=== PATIENT | female | born 1960 | race Caucasian/White ===

== ENCOUNTER 2016-10-27 19:01 | Emergency (ER) | payer BC ==
[~2016-10-27] VITALS: Ht 165.1 cm; Wt 106.2 kg
[2016-10-27 19:05] VITALS: TEMP 37; Ht 165.1 cm; Wt 106.2 kg
[2016-10-27] MEDS ORDERED: SERT-234 PO (19:33)
[2016-10-27] MEDS ORDERED: MAGN400T6 PO (19:33)
[2016-10-27] MEDS ORDERED: TRAM-10 PO (19:33)
[2016-10-27] MEDS ORDERED: ATEN-173 PO (19:33)
[2016-10-27] MEDS ORDERED: CAND32TA2 PO (19:33)
[2016-10-27] MEDS ORDERED: PRLSR20 PO (19:33)
[2016-10-27] MEDS ORDERED: IBUP-1050 PO (19:33)
[2016-10-27] MEDS ORDERED: CHOL2000 PO (19:33)
[2016-10-27] MEDS ORDERED: ALPR-411 PO (19:33)
--- NOTE | 2016-10-27 19:43 | DIAGNOSTIC IMAGING REPORT ---
ULTRASOUND LEFT LOWER EXTREMITY VENOUS CLINICAL HISTORY: Left leg pain and swelling. COMPARISON STUDY: No priors. TECHNIQUE: Real-time, grayscale, and color Doppler sonography of the deep veins of the left lower extremity was performed from the inguinal crease to the calf. Compression and augmentation were utilized. FINDINGS: There is no sonographic evidence of deep venous thrombosis identified in the left lower extremity. The common femoral, superficial femoral, and popliteal veins are patent and normally compressible. The greater saphenous vein and the profunda femoris vein at the junction with the common femoral vein are clear. The visualized calf veins are patent. IMPRESSION: There is no sonographic evidence of deep venous thrombosis identified in the left lower extremity. Electronically signed by: Saqib Jean M.D. 10/27/2016 7:42 PM Dictated Date/Time: 10/27/2016 7:42 PM
--- NOTE | 2016-10-27 20:03 | EMERGENCY ROOM VISIT NOTE ---
ED Visit Note First contact with patient: 19:08 CHIEF COMPLAINT: Left leg swelling HISTORY OF PRESENT ILLNESS: This 56-year-old female patient presents to the emergency department ambulatory for evaluation of left leg pain and swelling. The patient states that she injured her left leg 2 months ago. At that time, she was evaluated by orthopedics and eventually diagnosed with medial and lateral meniscus tears. She underwent repair of this approximately one month ago by orthopedics in her hometown. She states that after the surgery, she developed significant swelling of the left leg and had an ultrasound to rule out DVT which was negative. She reports that she has been healing well, but has developed increased swelling and pain with walking over the past 2 weeks. She contacted her orthopedic provider and they recommended that she have another ultrasound of the leg. She states that they were unable to schedule it soon enough, so she decided to go to the closest emergency Department to have the ultrasound done. She is from [place] and is here dropping her son off at college. She rates her discomfort a 7/10. She denies any history of blood clots. She does not smoke. She denies any recent prolonged travel. She denies any numbness or weakness of the leg, redness or fever. REVIEW OF SYSTEMS: A review of systems was performed with positives and pertinent negatives listed in the history of present illness. All other systems were reviewed and are negative. ALLERGIES: Trimethobenzamide MEDICATIONS: See med list PMH: Left meniscus repair SOCIAL HISTORY: [facility] She is visiting to drop her son off at college. PHYSICAL EXAM: VITALS: Vitals are noted on the nurse's note and reviewed by myself. Vital signs stable. GENERAL: This is a 56-year-old female, in no acute distress, nondiaphoretic, well-developed well-nourished. HEART: Regular rate and rhythm, no murmurs gallops or rubs. LUNGS: Clear to auscultation throughout all lung curtis. EXTREMITIES: Mild nonpitting edema of the left lower extremity. No erythema or palpable cords. Full range of motion of the left lower extremity. Strength 5/ 5. Dorsalis pedis pulse 2+. RADIOGRAPHIC FINDINGS: ULTRASOUND LEFT LOWER EXTREMITY VENOUS FINDINGS: There is no sonographic evidence of deep venous thrombosis identified in the left lower extremity. The common femoral, superficial femoral, and popliteal veins are patent and normally compressible. The greater saphenous vein and the profunda femoris vein at the junction with the common femoral vein are clear. The visualized calf veins are patent. IMPRESSION: There is no sonographic evidence of deep venous thrombosis identified in the left lower extremity. EMERGENCY DEPARTMENT COURSE: The patient was evaluated as above. Ultrasound of the left lower extremity was performed and read by radiology with no DVT identified. The patient will contact her orthopedist but the results and follow -up with them as needed. Conservative measures were discussed including elevating the leg for relief of the swelling. The patient verbalized understanding of my assessment and treatment plan and was discharged home in good condition. Medication reconciliation: I attest that I have personally reviewed the patient 's current medication list. Blood pressure screening: Patient was found to have normal blood pressure on screening and does not require follow-up. DIAGNOSIS: Left leg swelling Current/Historical Medications Scheduled Alprazolam (Xanax), 0.5 MG PO PRN Atenolol (Tenormin), 25 MG PO DAILY Candesartan Cilexetil (Atacand), 32 MG PO DAILY Cholecalciferol (Vitamin D3), 1 CAP PO DAILY Ibuprofen (Advil), 400 MG PO PRN UD Magnesium Oxide (Mag-Ox), 400 MG PO DAILY Omeprazole (Prilosec), 20 MG PO DAILY Sertraline (Zoloft), 100 MG PO DAILY Scheduled PRN Tramadol (Ultram), 50 MG PO Q6 PRN for Pain Allergies Coded Allergies: Trimethobenzamide (Verified Allergy, Unknown, HIVES, 10/27/16) Vital Signs Date Time Temp Pulse Resp B/P (MAP) Pulse Ox O2 Delivery O2 Flow Rate FiO2 10/27/16 20:09 54 16 132/60 96 10/27/16 19:05 37.0 69 16 147/88 95 Room Air Departure Information Impression Primary Impression: Swelling of left extremity Dispostion Home / Self-Care Condition GOOD Referrals No Doctor, Assigned (PCP) Patient Instructions My [facility] Additional Instructions Elevate the leg for swelling. Follow up with your orthopedist as scheduled.
[2016-10-27 20:09] VITALS: BP 132/60; PULSE 54; O2SAT 96
== END 2016-10-27 20:10 | disposition home or self-care (01) ==
LOC: C.EDB 19:03 → C.EDD 20:10
DX: M79.89 Other specified soft tissue disorders (principal); Z79.899 Other long term (current) drug therapy